=== PATIENT | female | born 1935 | race Caucasian/White ===

== ENCOUNTER → 2016-11-10 | Outpatient (CLI) | payer MEDICARE, OTHER | LOC: MC.RAD 09:19 | DX: Z12.31 Encounter for screening mammogram for malignant neoplasm of breast (principal); R92.0 Mammographic microcalcification found on diagnostic imaging of breast; Z80.3 Family history of malignant neoplasm of breast ==

== ENCOUNTER → 2016-11-16 | Outpatient (CLI) | payer MEDICARE, OTHER | LOC: MC.RAD 13:24 | DX: R92.0 Mammographic microcalcification found on diagnostic imaging of breast (principal) ==

== ENCOUNTER → 2016-11-23 | Outpatient (CLI) | payer MEDICARE, OTHER | LOC: MC.RAD 10:00 | DX: D24.1 Benign neoplasm of right breast (principal) ==

== ENCOUNTER 2017-09-18 08:00 | Outpatient (RCR) | payer MEDICARE, OTHER | END 2017-09-21 15:43 | disposition home or self-care (01) | LOC: MKS.ESL.PT 08:00 | DX: Z01.818 Encounter for other preprocedural examination (principal); M25.562 Pain in left knee | CPT/HCPCS: G8978-GP; G8979-GP; G8980-GP ==

== ENCOUNTER 2017-09-28 15:22 | Inpatient (IN) | payer MEDICARE, OTHER ==
[~2017-09-28] VITALS: Ht 152.4 cm; Wt 59.1 kg
[2017-10-03] VITALS (12 sets, daily range): BP systolic 100–154; BP diastolic 46–65; PULSE 64–78; TEMP 97.4–98.5
[2017-10-03] MEDS ORDERED: CALCIUM 600600 MG PO (02:36)
[2017-10-03] MEDS ORDERED: GLUCOSAMINE/CHO1 CA4 PO (02:39)
[2017-10-03] MEDS ORDERED: HYDRODIURIL50 MG PO ×2 (02:40→02:43)
[2017-10-03] MEDS ORDERED: MULTIPLE VITAMI1 CAP PO (02:40)
[2017-10-03] MEDS ORDERED: PRAVACHOL80 MG PO (02:41)
[2017-10-03] MEDS ORDERED: NORVASC 5MG5 MG/TAB PO (05:34)
[2017-10-04 01:59] VITALS: BP 123/54; PULSE 71; TEMP 98
[2017-10-04 04:00] VITALS: BP 135/75; PULSE 75; TEMP 98.5
[2017-10-04 06:32] LABS: HEMATOCRIT 32.3 % (37.0-47.0)
[2017-10-04 08:20] VITALS: BP 110/69; PULSE 72; TEMP 97.8
[2017-10-04 11:51] VITALS: BP 127/48; PULSE 74; TEMP 99
[2017-10-04 16:05] VITALS: BP 120/51; PULSE 78; TEMP 98.2
[2017-10-04 20:00] VITALS: BP 145/52; PULSE 72; TEMP 98.4
[2017-10-05 04:00] VITALS: BP 153/53; PULSE 76; TEMP 98.5
[2017-10-05 07:20] LABS: HEMATOCRIT 31.9 % (37.0-47.0); HEMOGLOBIN 10.9 g/dl (12.5-16.0)
[2017-10-05 07:57] VITALS: BP 131/51; PULSE 78; TEMP 99.4
[2017-10-05] MEDS ORDERED: ROXICODONE 55 MG/TAB PO (12:46)
[2017-10-05] MEDS ORDERED: XARELTO10 MG PO (12:46)
[2017-10-05] MEDS ORDERED: NORCO 325 MG-7.1 TAB PO (12:47)
== END 2017-10-05 14:20 | disposition home or self-care (01) | DRG 470 ==
LOC: JCC 10-03 05:14
PROVIDERS: Orthopaedic Surgery
PROC: 0SRC0J9 Replacement of Right Knee Joint with Synthetic Substitute, Cemented, Open Approach (ICD-10-PCS; principal; 2017-10-03 07:30)
DX: M17.11 Unilateral primary osteoarthritis, right knee (principal); Z87.891 Personal history of nicotine dependence
CPT/HCPCS: A9284; C1713; C1776; J0690; J1100; J2250; J2274; J2405; J2704; J3010; J7042; J7120; L1830

== ENCOUNTER → 2017-12-28 | Outpatient (CLI) | payer MEDICARE, OTHER ==
[~2017-12-28] MED LIST: CALCIUM 600600 MG PO; GLUCOSAMINE/CHO1 CA4 PO; HYDRODIURIL50 MG PO; MULTIPLE VITAMI1 CAP PO; NORCO 325 MG-7.1 TAB PO; NORVASC 5MG5 MG/TAB PO; PRAVACHOL80 MG PO; ROXICODONE 55 MG/TAB PO; XARELTO10 MG PO
== END ==
LOC: MC.RAD 09:38
DX: Z12.31 Encounter for screening mammogram for malignant neoplasm of breast (principal)

== ENCOUNTER 2018-01-01 11:00 | Outpatient (RCR) | payer MEDICARE, OTHER | END 2018-01-02 10:45 | disposition home or self-care (01) | LOC: MKS.ESL.PT 11:00 | DX: Z47.1 Aftercare following joint replacement surgery (principal); Z96.651 Presence of right artificial knee joint | CPT/HCPCS: G8978-GP; G8979-GP; G8980-GP ==

== ENCOUNTER → 2019-01-14 | Outpatient (CLI) | payer MEDICARE, OTHER | LOC: MC.RAD 09:55 | DX: Z12.31 Encounter for screening mammogram for malignant neoplasm of breast (principal) ==

== ENCOUNTER → 2020-03-16 | Outpatient (CLI) | payer MEDICARE, OTHER | LOC: MC.RAD 12:28 | DX: Z12.31 Encounter for screening mammogram for malignant neoplasm of breast (principal) ==

== ENCOUNTER 2020-05-05 08:19 | Emergency (ER) | payer MEDICARE, OTHER ==
[~2020-05-05] VITALS: Ht 160 cm; Wt 58.6 kg
[2020-05-05 08:28] VITALS: TEMP 96.6
[2020-05-05 09:32] VITALS: BP 106/80; PULSE 62
[2020-05-05 13:29] LABS: BASO % 0.2 % (0.0-2.0); EOS # 0.1 (0.0-0.7); EOS % 1.3 % (0-4.0); GRAN % 73.7 % (42.2-75.2); HEMOGLOBIN 14.2 g/dl (12.5-16.0); LYMPH # 1.9 (1.2-3.4); LYMPH % 17.3 % (20.0-51.0); MEAN CELL VOLUME 93 fl (80.0-100.0); MEAN CORPUSCULAR HEMOGLOBIN 30 pg (27.0-31.0); MEAN CORPUSCULAR HGB CONC 32 g/dl (33.0-37.0); MEAN PLATELET VOLUME 10.8 fl (7.4-10.4); MONO # 0.8 (0.1-0.6); MONO % 7.2 % (1.7-9.3); PLATELET COUNT 287 K/mm3 (130-400); RED BLOOD COUNT 4.73 M/mm3 (4.10-5.30); REDCELL DISTRIBUTION WIDTH-CV 12.6 % (11.5-14.5)
[2020-05-05 13:34] LABS: PROTHROMBIN TIME 11.4 SECONDS (9.7-12.8)
[2020-05-05 14:16] LABS: ALBUMIN 4.5 gm/dL (3.5-5.0); BILIRUBIN,TOTAL 0.7 mg/dL (0.0-1.0); CALCIUM 10.1 mg/dL (8.4-10.2); CREATININE, serum 0.84 (0.52-1.25); POTASSIUM 3.4 mmol/L (3.4-5.0); TOTAL PROTEIN 8.3 gm/dL (6.4-8.2)
[2020-05-05 14:29] LABS: TROPONIN-I 0.019 ng/mL (0.000-0.035)
== END 2020-05-05 09:45 | disposition short-term general hospital (02) ==
LOC: COL.ER 08:19
PROVIDERS: Emergency Medicine
DX: I21.19 ST elevation (STEMI) myocardial infarction involving other coronary artery of inferior wall (principal); I10 Essential (primary) hypertension; E78.5 Hyperlipidemia, unspecified
CPT/HCPCS: J1644; J2405; J3101; J7030

== ENCOUNTER 2020-05-22 14:44 | Outpatient (RCR) | payer MEDICARE, OTHER | END 2020-06-24 06:32 | disposition still patient (30) | LOC: COL.CR 14:44 | DX: Z48.812 Encounter for surgical aftercare following surgery on the circulatory system (principal); Z98.61 Coronary angioplasty status; I25.2 Old myocardial infarction; I10 Essential (primary) hypertension; E78.00 Pure hypercholesterolemia, unspecified ==

== ENCOUNTER 2021-06-30 17:37 | Emergency (ER) | payer MEDICARE, OTHER ==
[~2021-06-30] VITALS: Ht 160 cm; Wt 56.8 kg
[2021-06-30] MEDS ORDERED: DOXYCYCLINE 10100 MG PO (21:33)
[2021-06-30 22:00] VITALS: BP 154/91; PULSE 88; TEMP 98.4
== END 2021-06-30 22:00 | disposition home or self-care (01) ==
LOC: COL.ER 17:37
DX: S51.852A Open bite of left forearm, initial encounter (principal); I25.2 Old myocardial infarction; I10 Essential (primary) hypertension; Z79.899 Other long term (current) drug therapy; W54.0XXA Bitten by dog, initial encounter

== ENCOUNTER 2022-05-12 07:54 | Emergency (ER) | payer MEDICARE, OTHER ==
[~2022-05-12] VITALS: Ht 160 cm; Wt 56.8 kg
[~2022-05-12 07:54] MED LIST changes: +DOXYCYCLINE 10100 MG PO
[2022-05-12 08:36] VITALS: TEMP 97.8
[2022-05-12 11:02] VITALS: BP 149/91; PULSE 78
== END 2022-05-12 11:02 | disposition home or self-care (01) ==
LOC: COL.ER 07:54
DX: S01.81XA Laceration without foreign body of other part of head, initial encounter (principal); Z79.82 Long term (current) use of aspirin; Z87.891 Personal history of nicotine dependence; W18.39XA Other fall on same level, initial encounter

== ENCOUNTER 2023-12-28 11:15 | Outpatient (RCR) | payer MEDICARE, OTHER | END 2023-12-31 | disposition home or self-care (01) | LOC: MKS.ESL.PT | DX: M54.32 Sciatica, left side (principal); M25.552 Pain in left hip ==